=== PATIENT | female | born 1955 | race Caucasian/White ===

== ENCOUNTER 2018-09-19 17:28 | Emergency (ER) | payer MEDICAID ==
[2018-09-19] MEDS ORDERED: Sodium Chloride 0.9% 1,000 ML IV ONE (19:20)
[2018-09-19 19:51] LABS: BASO # 0.2 K/uL (0.0-0.2); BASO % 1.1 % (0.0-2.0); EOS # 0.3 K/uL (0.0-0.7); EOS % 1.7 % (0.0-4.0); HEMOGLOBIN 11.1 g/dL (11.0-16.0); LYMPH # 2.5 K/uL (1.0-4.3); LYMPH % 17.3 % (20.0-40.0); MEAN CELL VOLUME 82.2 fL (81.0-99.0); MEAN CORPUSCULAR HEMOGLOBIN 26.3 pg (27.0-31.0); MEAN PLATELET VOLUME 8.4 fL (7.2-11.7); MONO # 0.8 K/uL (0.0-0.8); MONO % 5.8 % (0.0-10.0); NEUT # 10.8 K/uL (1.8-7.0); NEUT % 74.1 % (50.0-75.0); RBC 4.22 Mil/uL (3.80-5.20); RED CELL DISTRIBUTION WIDTH 14.6 % (11.5-14.5); WHITE BLOOD COUNT 14.5 K/uL (4.8-10.8)
[2018-09-19 20:05] LABS: AST/SGOT 67 U/L (14-36); BLOOD UREA NITROGEN 10 mg/dL (7-17); CALCIUM 9.6 mg/dl (8.6-10.4); GFR NON-AFRICAN AMERICAN > 60; LIPASE 28 U/L (23-300)
[2018-09-19 20:06] LABS: ALT/SGPT < 6 U/L (9-52)
[2018-09-19 20:07] LABS: INR 1.3
[2018-09-19] MEDS ORDERED: Iohexol 240 (50 ml) PO ONE (20:09)
--- NOTE | 2018-09-19 20:12 | C.PDOC ---
History Of Present Illness 63 year old female presents to the ED for evaluation of abdominal distention which began 3 weeks ago. Patient states that four days ago, she noticed a few episodes of pink vaginal discharge/spotting. Patient also reports decreased ap petite. Patient denies vomiting, diarrhea, constipation or rectal bleeding at this time. Time Seen by Provider: 09/19/18 19:15 Chief Complaint (Nursing): Female Genitourinary History Per: Patient History/Exam Limitations: no limitations Onset/Duration Of Symptoms: Other (3 weeks ) Current Symptoms Are (Timing): Still Present Associated Symptoms: denies: Vomiting, Diarrhea, Constipation Additional History Per: Patient Past Medical History Reviewed: Historical Data, Nursing Documentation, Vital Signs Vital Signs: Last Vital Signs Temp 99.4 F 09/19/18 17:50 Pulse 105 H 09/19/18 17:50 Resp 20 09/19/18 17:50 BP 151/81 H 09/19/18 17:50 Pulse Ox 95 09/19/18 17:50 - Medical History PMH: Gall Bladder Disease Surgical History: Cholecystectomy - Social History Hx Alcohol Use: No Hx Substance Use: No - Immunization History Hx Tetanus Toxoid Vaccination: Yes Hx Influenza Vaccination: No Hx Pneumococcal Vaccination: No Review Of Systems Constitutional: Positive for: Other (decreased appetite ) Gastrointestinal: Positive for: Other (abdominal distention ). Negative for: Vomiting, Diarrhea, Constipation Genitourinary: Positive for: Vaginal Discharge, Vaginal Bleeding Physical Exam - Physical Exam Appears: Non-toxic, No Acute Distress, Other (comfortable ) Skin: Normal Color, Warm, Dry Head: Atraumatic, Normacephalic Eye(s): bilateral: Normal Inspection Nose: Normal Neck: Supple Chest: Symmetrical, No Deformity, No Tenderness Cardiovascular: Rhythm Regular, No Murmur Respiratory: Normal Breath Sounds, No Rales, No Rhonchi, No Wheezing Gastrointestinal/Abdominal: No Soft (hard to touch ), Tenderness (mild, to left upper quadrant and left periumbilical regions ), Distention Extremity: Normal ROM, Capillary Refill (less than 2 seconds ) Neurological/Psych: Oriented x3, Normal Speech, Normal Cognition ED Course And Treatment - Laboratory Results Result Diagrams: 09/19/18 19:47 09/19/18 19:47 Lab Results: PT 14.0 SECONDS (9.7-12.2) H 09/19/18 19:47 INR 1.3 09/19/18 19:47 APTT 32 SECONDS (21-34) 09/19/18 19:47 Total Bilirubin 0.4 mg/dL (0.2-1.3) 09/19/18 19:47 AST 67 U/L (14-36) H 09/19/18 19:47 ALT < 6 U/L (9-52) L 09/19/18 19:47 Alkaline Phosphatase 89 U/L (38-126) 09/19/18 19:47 Total Protein 8.0 g/dL (6.3-8.3) 09/19/18 19:47 Albumin 4.0 g/dL (3.5-5.0) 09/19/18 19:47 Globulin 4.0 gm/dL (2.2-3.9) H 09/19/18 19:47 Albumin/Globulin Ratio 1.0 (1.0-2.1) 09/19/18 19:47 Lipase 28 U/L (23-300) 09/19/18 19:47 O2 Sat by Pulse Oximetry: 95 (on RA ) Pulse Ox Interpretation: Normal - CT Scan/US Pelvic US Other Rad Studies (CT/US): Read By Radiologist, Radiology Report Reviewed CT/US Interpretation: History. Post menopausal bleeding. Distention. Co mparison. None available. Technique. TA. Findings. Uterus. Heterogeneous and enlarged uterus measuring 23.87 x 14.17 x 21.38 cm. Mid calcified fibroid is seen measuring 15.08 x 14.19 x 14.96 cm. Anterior lower fibroid measures 6.4 x 3.46 x 6.97 cm. Endometrium. Unclear due to fibroids. Right ovary. Not visualized. Left ovary. Not visualized. Other Findings. None. Impression. 1. Heterogeneous enlarged uterus. 2. Uterine fibroids. . Electronically signed on Sep 19, 2018 10:15:27 PM EDT by: Yovani Sanders M.D., VISHAL Certified By ABR & CBCCT. Fellowship Trained MRI and CT Specialist. CT abd/pelvis Other Rad Studies (CT/US): Read By Radiologist, Radiology Report Reviewed CT/US Interpretation: EXAM: CT Abdomen and Pelvis without IV; but with oral contrast agent. CLINICAL HISTORY: Abd distention opened view as much as possible on machine. TECHNIQUE: Axial computed tomography images of the abdomen and pelvis with intravenous contrast. 0.00 mGy-cm. CONTRAST: With; OMNI 240. COMPARISON: Comparison is made to pelvic ultrasound evaluation performed earlier the same date. FINDINGS: LUNG BASES: The lung bases appear clear. No pleural effusions are seen. LIVER: There is hepatomegaly. The liver measured 20.1 cm in the midclavicular line. GALLBLADDER AND BILE DUCTS: The gallbladder appears within normal limits. No radioopaque gallstones are seen. No biliary ductal dilatation is evident. PANCREAS: Unremarkable. SPLEEN: Unremarkable. ADRENAL GLANDS: Unremarkable. KIDNEYS, URETERS, AND BLADDER: The kidneys appear within normal limits. There is no hydronephrosis or hydroureter. No urinary calculi are seen. The urinary bladder appeared normal in size. The bladder is compressed by the large uterine fibroid replaced uterus. STOMACH AND BOWEL: Unremarkable appearance of the stomach and bowel. No evidence of bowel obstruction. Thick walled fluid filled duodenum and loops of jejunum compatible with enteritis. Infectious and inflammatory etiologies are considered. APPENDIX: No evidence of acute appendicitis on CT examination. PERITONEUM: No free fluid. No free air. A moderate sized umbilical hernia is noted containing fat. LYMPH NODES: There is evidence of diffuse retroperit newman adenopathy with numerous lymph nodes present measuring up to 1.2 cm in cross section. REPRODUCTIVE: The uterus is massively enlarged measuring approximately 28.8 x 26.7 x 29.7 cm in longitudinal, craniocaudal and transverse dimensions respectively. The uterus is lobulated, heterogeneous with multiple mottled calcifications scattered throughout thought compatible with pedunculated and degenerating uterine fibroids. Gynecologic surgical consultation is recommended. VASCULATURE: No evidence of abdominal aortic aneurysm. BONES: No aggressive appearing osseous lesion. No acute osseous pathology evident. There is evidence of degenerative disc disease at L5-S1. IMPRESSION: Massively enlarged uterus replaced by pedunculated and degenerating uterine fibroids. Diffuse retroperitoneal adenopathy. Enteritis. . Electronically signed on Sep 19, 2018 10:51:25 PM EDT by: Yovani Sanders M.D., VISHAL Certified By ABR & CBCCT. Fellowship Trained MRI and CT Specialist Progress Note: Bloodwork, urinalysis, CT A/P, US Transvaginal ordered and reviewed. IV Fluids given. - Physician Consult Information Physician Contacted: Rosita Quijano Outcome Of Conversation: Discussed patient with communications analyst concept artist, recommends pain control and outpatient follow up wit concept artist. Disposition Counseled Patient/Family Regarding: Studies Performed, Diagnosis, Need For Followup, Rx Given - Disposition Referrals: Sandra Ramírez MD [Medical Doctor] - Disposition: HOME/ ROUTINE Disposition Time: 23:15 Condition: STABLE Additional Instructions: FOLLOW UP WITH YOUR MORTGAGE CLOSING CLERK TOMORROW USE PAIN MEDICATION NEEDED RETURN TO ER IF YOUR SYMPTOMS WORSEN Prescriptions: Naproxen 375 mg PO BID PRN #20 tablet PRN Reason: pain Instructions: Uterine Fibroids (DC) Forms: [employer] (Croatian) Print Language: GRENADIAN - Clinical Impression Clinical Impression: Uterine fibroid, Postmenopausal bleeding - Scribe Statement The provider has reviewed the documentation as recorded by the Scribe (Tammie Smith) Provider Attestation: All medical record entries made by the Scribe were at my direction and personally dictated by me. I have reviewed the chart and agree that the record accurately reflects my personal performance of the history, physical exam, medical decision making, and the department course for this patient. I have also personally directed, reviewed, and agree with the discharge instructions and disposition.
[2018-09-19] MEDS ORDERED: Iohexol 240 (50 ml) ONE (20:13)
[2018-09-19 20:14] LABS: SQUAMOUS EPITHIAL < 1 /hpf (0-5); URINE BACTERIA RARE (<OCC); URINE BILIRUBIN NEGATIVE (NEGATIVE); URINE CLARITY Hazy (Clear); URINE COLOR Straw (YELLOW); URINE GLUCOSE (UA) NORMAL (Normal); URINE LEUKOCYTE ESTERASE TRACE Leu/uL (Negative); URINE PROTEIN NEGATIVE (NEGATIVE); URINE UROBILINOGEN NORMAL mg/dL (0.2-1.0)
[2018-09-19 20:17] LABS: URINE BLOOD 1+ (NEGATIVE)
[2018-09-19 22:20] VITALS: RESP 16
[2018-09-19 23:29] VITALS: BP 128/82; PULSE 88; TEMP 98.3
[2018-09-19 23:54] VITALS: O2SAT 95
--- NOTE | 2018-09-20 09:58 | CT ---
Date of service: 09/19/2018 PROCEDURE: CT Abdomen and Pelvis with contrast HISTORY: abdominal distension, r/o mass COMPARISON: Pelvis Ultrasound 07/22/2018. TECHNIQUE: Helical CT of the abdomen and pelvis was performed following oral contrast administration only. Intravenous contrast was not administered as per referring physician request. Coronal and sagittal reformats were generated. Radiation dose: Total exam DLP = 1122.88 mGy-cm. This CT exam was performed using one or more of the following dose reduction techniques: Automated exposure control, adjustment of the mA and/or kV according to patient size, and/or use of iterative reconstruction technique. FINDINGS: LOWER THORAX: Mild left hemidiaphragm elevation is appreciated with bilateral basilar dependent/compressive atelectasis identified. No pleural effusion. Small hiatal hernia identified. LIVER: Unremarkable. No gross lesion or ductal dilatation. GALLBLADDER AND BILE DUCTS: Unremarkable. PANCREAS: Unremarkable. No gross lesion or ductal dilatation. SPLEEN: Unremarkable. ADRENALS: Unremarkable. No mass. KIDNEYS AND URETERS: Unremarkable. No hydronephrosis. No solid mass. VASCULATURE: Unremarkable. No aortic aneurysm. No aortic atherosclerotic calcification or mural plaque present. BOWEL: Unremarkable. No obstruction. No gross mural thickening. APPENDIX: Normal appendix. PERITONEUM: Unremarkable. No free fluid. No free air. LYMPH NODES: Mild retroperitoneal lymphadenopathy is appreciated at the aortocaval and periaortic spaces with a large lymph node identified measuring 3.1 x 2.0 cm paracaval in location immediately cephalad to the level of the bifurcation of the abdominal aorta. BLADDER: Urinary bladder is compressed by the enlarged uterus described below. REPRODUCTIVE: The uterus is grossly enlarged and better depicted than prior pelvis ultrasound 09/19/2018. It measures 22.9 x 25.0 x 16.0 cm with multiple masses, numerous of which are calcified, and some of which are exophytic toward the right and superiorly as well as posteriorly. The pattern likely reflects gross fibroid uterine enlargement. Underlying lesions are not excluded and are poorly evaluated due to the extent of fibroids in this patient primarily. Trace ascites is seen related to periphery of the large uterus and is minimal. No free intra peritoneal gas collection identified. BONES: No acute fracture. OTHER FINDINGS: None. IMPRESSION: Massive fibroid uterus 25.0 cm greatest dimension with underlying lesions including malignancy difficult to exclude, particularly in this unenhanced exam. Multiple exophytic masses extend from the uterus suggestive of fibroids. Clinically correlate further. Gynecological consultation advised. Mild aortocaval retroperitoneal lymphadenopathy. Trace ascites related. Preliminary report provided by [facility], 09/19/2018, 10:51 p.m..
--- NOTE | 2018-09-20 10:08 | US ---
Date of service: 09/19/2018 HISTORY: postmenopausal bleeding, distension COMPARISON: CT abdomen and pelvis without IV contrast performed 09/19/18 TECHNIQUE: Transabdominal pelvic ultrasound FINDINGS: UTERUS: Measures 23.9 x 14.2 x 21.4 cm. Anteverted. Heterogeneous uterine echotexture limits evaluation. Probable large calcified mid uterine fibroid measuring approximately 15.1 x 14.2 x 15.0 cm. Anterior low uterine fibroid measures approximately 6.4 x 3.5 x 7.0 cm. ENDOMETRIUM: Not visualized, obscured by large probable fibroids. CERVIX: No cervical abnormality identified. RIGHT OVARY: Not visualized. LEFT OVARY: Not visualized. FREE FLUID: No significant free fluid noted. OTHER FINDINGS: None. IMPRESSION: Limited study. Heterogeneous uterine echotexture limits evaluation. Markedly enlarged uterus with large probable fibroids including calcified mid uterine fibroid measuring up to 15.1 cm in maximum dimension. Gynecologic consultation advised and follow-up/further evaluation as indicated. Preliminary impression was provided by [employer].
--- NOTE | 2018-09-21 06:31 | CARD ---
APPROVED REPORT Date of service: 09/19/2018 EKG Measurement Heart [id number] <Conclusion> Normal sinus rhythm Nonspecific ST abnormality Abnormal ECG
== END 2018-09-19 23:29 | disposition home or self-care (01) ==
LOC: C.ER 17:28
DX: D25.9 Leiomyoma of uterus, unspecified (principal); N95.0 Postmenopausal bleeding
CPT/HCPCS: 74176; 76856; 80053; 81001; 83690; 85025; 85610; 85730; 86850; 86900; 93005; 96360; 99285; J7030; Q9966

== ENCOUNTER 2018-10-18 16:25 | Inpatient (IN) | payer MEDICAID | END 2018-10-23 23:26 | disposition home or self-care (01) | DRG 369 | LOC: C.ER 16:25 → C.9E 18:13 → C.3T 20:41 | PROVIDERS: ADMIT Internal Medicine Pulmonary Disease ==